=== PATIENT | female | born 2000 | race African-American/Black ===

== ENCOUNTER 2019-01-06 17:49 | Emergency (ER) | payer BC ==
[2019-01-06 18:17] LABS: BILIRUBIN,URINE NEGATIVE (NEGATIVE); GLUCOSE, URINE (UA) NEGATIVE (NEGATIVE); KETONES,URINE (UA) NEGATIVE (NEGATIVE); LEUKOCYTE ESTERASE, URINE TRACE (NEGATIVE); NITRITE,URINE NEGATIVE (NEGATIVE); OCCULT BLOOD,URINE NEGATIVE (NEGATIVE); PH,URINE 6.5 PH (5.0-7.5); PROTEIN,URINE NEGATIVE (NEGATIVE); UROBILINOGEN,URINE 0.2 (NORMAL) E.U./dL (NORMAL)
[2019-01-06 18:27] LABS: CLARITY,URINE SL. CLOUDY (CLEAR); HCG UR QUAL NEGATIVE
[2019-01-06 18:42] LABS: BACTERIA,URINE Few /HPF (None Seen); MUCUS,URINE Few Strands; RBC,URINE 0-5 /HPF (0-5); SQUAMOUS EPITHELIAL CELL,UR MANY Squamous (<= Few)
--- NOTE | 2019-01-06 18:46 | ED Physician Documentation ---
PD HPI ABD PAIN - Stated complaint Stated Complaint: FEMALE - Chief complaint Chief Complaint: Abd Pain - History obtained from History obtained from: Patient - History of Present Illness Timing - onset: Other (About 4 to 5 days of foul-smelling urine with vaginal discharge, no pelvic pain or back pain. No vomiting. She is and monogamous.) Review of Systems Constitutional: reports: Reviewed and negative Cardiac: reports: Reviewed and negative Respiratory: reports: Reviewed and negative PD PAST MEDICAL HISTORY - Allergies Allergies/Adverse Reactions: Allergies Allergy/AdvReac Type Severity Reaction Status Date / Time No Known Drug Allergies Allergy Verified 01/06/19 17:57 PD ED PE NORMAL - Vitals Vital signs reviewed: Yes - General General: Alert and oriented X 3, No acute distress - Abdomen Abdomen: Soft, Non tender - Female Female : Wood Tool Maker present (Marlena MEADOWS), Other (Fair amount of white creamy vaginal discharge, no tenderness.) - Back Back: No CVA TTP - Extremities Extremities: No edema, No calf tenderness / cord - Neuro Neuro: Alert and oriented X 3, Normal speech Results - Vitals Vitals: Vital Signs - 24 hr 01/06/19 17:53 Temperature 37 C Heart Rate 96 Respiratory 16 Rate Blood Pressure 145/76 H O2 Saturation 100 Oxygen O2 Source Room air - Labs Labs: Microbiology 01/06/19 19:36 Wet Prep - Final Vaginal Laboratory Tests 01/06/19 01/06/19 18:12 18:50 Urine Color YELLOW YELLOW Urine Clarity SL. CLOUDY CLEAR Urine pH 6.5 7.0 Ur Specific Dixon 1.020 1.020 Urine Protein NEGATIVE NEGATIVE Urine Glucose (UA) NEGATIVE NEGATIVE Urine Ketones NEGATIVE NEGATIVE Urine Occult Blood NEGATIVE NEGATIVE Urine Nitrite NEGATIVE NEGATIVE Urine Bilirubin NEGATIVE NEGATIVE Urine Urobilinogen 0.2 (NORMAL) 0.2 (NORMAL) Ur Leukocyte Esterase TRACE H NEGATIVE Urine RBC 0-5 Urine WBC 6-10 H Ur Squamous Epith Cells MANY Squamous H Urine Bacteria Few Urine Mucus Few Strands Ur Microscopic Review INDICATED NOT INDICATED Urine Culture Comments NOT INDICATED NOT INDICATED Urine HCG, Qual NEGATIVE PD MEDICAL DECISION MAKING - ED course ED course: 18-year-old with vaginitis, UA and wet prep were negative. We discussed the possibility of STDs and she admits that her was messing around on her is and is concerned for STDs and as touch is treated with Rocephin and Zithromax here. Departure - Departure Disposition: Home, Self Care Clinical Impression: Vaginitis Qualifiers: Chronicity: acute Qualified Code(s): N76.0 - Acute vaginitis Condition: Good Record reviewed to determine appropriate education?: Yes Instructions: ED Pelvic Pain [facility] Follow-Up: [facility] [Provider Group] Comments: As discussed, your urinalysis and yeast/bacterial vaginosis test were negative. STDs are possibility and we are testing for these. We will call you and if positive but you have been treated for gonorrhea and chlamydia.
[2019-01-06 19:08] LABS: BILIRUBIN,URINE NEGATIVE (NEGATIVE); GLUCOSE, URINE (UA) NEGATIVE (NEGATIVE); KETONES,URINE (UA) NEGATIVE (NEGATIVE); LEUKOCYTE ESTERASE, URINE NEGATIVE (NEGATIVE); NITRITE,URINE NEGATIVE (NEGATIVE); OCCULT BLOOD,URINE NEGATIVE (NEGATIVE); PROTEIN,URINE NEGATIVE (NEGATIVE); UROBILINOGEN,URINE 0.2 (NORMAL) E.U./dL (NORMAL)
[2019-01-06 19:10] LABS: CLARITY,URINE CLEAR (CLEAR)
[2019-01-06] MEDS ORDERED: AZITHROMYCIN 250 MG TABLET PO STA (20:10)
[2019-01-06] MEDS ORDERED: cefTRIAXone 250 MG VIAL IM STA (20:10)
[2019-01-06] MEDS ORDERED: LIDOCAINE 1% 2 ML VIAL MC ONE (20:10)
[2019-01-06 20:31] VITALS: BP 136/86
[2019-01-07 12:24] LABS: TRICHOMONAS VAGINALIS DNA NEGATIVE (NEGATIVE)
== END 2019-01-06 20:39 | disposition home or self-care (01) ==
LOC: ED 17:49
DX: N76.0 Acute vaginitis (principal)
CPT/HCPCS: 81001; 81003; 81025; 87210; 87491; 87591; 87661; 96372; 99282; 99283; A9270; 87086